=== PATIENT | male | born 1940 | race Two or more races ===

== ENCOUNTER 2022-02-03 23:31 | Inpatient (IN) ==
[2022-02-03] MEDS ORDERED: SODIUM CHLORIDE 1,000 ML IV STA (23:54)
--- NOTE | 2022-02-04 00:07 | ED.PDOC ---
General ED Provider: Dr. RHEA DONG Chief Complaint: Diabetes Stated Complaint: comes to the ER with increased thirst, weight loss and elevated blood glucose checked by family. Time Seen by Provider: 02/03/22 23:46 Mode of Arrival: Walk-In Information Source: Patient and Family Primary Care Provider: SHAUN ORTIZ Nursing and Triage Documentation Reviewed and Agree: Yes Does patient meet sepsis criteria?: No System Inflammatory Response Syndrome: Not Applicable Sepsis Protocol: For patient's 13 years and over: Temp is 96.8 and below OR 101 and greater Pulse >90 BPM Resp >20/minute Acutely Altered Mental Status Are patient's symptoms suggestive of a new infection, such as: -Pneumonia -Skin, Soft Tissue -Endocarditis -UTI -Bone, Joint Infection -Implantable Device -Acute Abdominal Infection -Wound Infection -Meningitis -Blood Stream Catheter Infection -Unknown Endocrine Complaint Exam Diabetic Complication Complaint/Exam Onset/Duration: few days Symptoms Are: Still present Timing: Constant Initial Severity: Moderate Current Severity: Moderate Aggravating: Reports None Associated Signs and Symptoms: Reports Polydipsia, Polyuria, Polyphagia and Weight loss; Denies Abdominal pain, Nausea, Vomiting, Fever, Diaphoresis or Fruity breath Related History: Denies Similar episode, DM 1, DM 2 or Insulin requiring Cardiac Risk Factors: Reports None CVA Risk Factors: Reports None Serious Bacterial Infection Risk Factors: Reports None Related Surgical History: Reports None Acetone on Breath: No Dry Mucous Membranes: No Kussmaul Respirations: No Glascow Coma Scale (see protocol): 15 Meningeal Signs: No Focal Weakness: None Focal Sensory Loss: None Gait: Normal Nystagmus Present: No Gag Reflex Present: No Finger to Nose: Normal Differential Diagnoses: Diabetic Ketoacidosis and Hyperglycemia Quality Indicator For Non-Traumatic Chest Pain/Syncope: EKG Performed Review of Systems Review Of Systems Constitutional: Reports No symptoms Eyes: Reports No symptoms Ears, Nose, Mouth, Throat: Reports No symptoms Respiratory: Reports No symptoms Cardiac: Reports No symptoms GI: Reports No symptoms : Reports No symptoms Musculoskeletal: Reports No symptoms Skin: Reports No symptoms Neurological: Reports Anxiety Endocrine: Reports Increased thirst, Increased urine and Unexplained weight loss All Other Systems: Reviewed and Negative ON LICENSE OF [facility] Medical History Abnormal prostate biopsy Family History DAUGHTER Diabetes Hypertension SON Diabetes Hypertension SISTER Diabetes Mother Myocardial infarct DAUGHTER No problems noted. FATHER Myocardial infarct Social History Smoking and tobacco status: Never smoker Surgical History Lens replaced Physical Exam Physical Exam Appearance: Reports Well-appearing, No pain distress and Well-nourished Ill-appearing: None Pain Distress: None Eyes: Reports EOMI and Conjunctiva clear ENT: Reports Ears normal, Nose normal and Dry mucosa Neck: Not Examined Respiratory: Reports Airway patent, Breath sounds clear, Breath sounds equal and Respirations nonlabored Cardiovascular: Reports Pulses normal, No rub, No murmur and Tachycardia GI/: Reports Soft, Nontender, No masses, Bowel sounds normal and No Organomegaly Musculoskeletal: Reports Normal strength, ROM intact, No edema and No calf tenderness Skin: Reports Warm, Dry and Normal color Neurological: Reports Sensation intact, Motor intact, Reflexes intact, Cranial nerves intact, Alert and Oriented Psychiatric: Reports Anxious Interpretation EKG Interpretation Time of EKG #1: 00:06 Rate: Normal Rhythm: Sinus Ectopy: None [place]: [place] ST Segment: Normal 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 age undetermined Critical Care Note Critical Care Note Total Critical Care Time (mins): 40 Course Course Hematology/Chemistry: 02/04/22 05:38 02/04/22 05:38 Orders, Labs, Meds: Lab Review 02/03/22 02/04/22 02/04/22 23:54 00:05 00:05 WBC 8.32 RBC 3.93 L Hgb 13.2 L Hct 37.4 L MCV 95.2 H MCH 33.6 H MCHC 35.3 RDW Coeff of Derrick 12.9 Plt Count 330 Immature Gran % (Auto) 0.4 Neut % (Auto) 69.2 Lymph % (Auto) 19.0 Mcdonald % (Auto) 9.1 Eos % (Auto) 1.3 Baso % (Auto) 1.0 Neut # (Auto) 5.8 Lymph # (Auto) 1.6 Mcdonald # (Auto) 0.8 Eos # (Auto) 0.1 Baso # (Auto) 0.1 Immature Gran # (Auto) 0.0 Puncture Site Rbrach Base Excess -4.4 L O2 Saturation 96.5 ABG pH 7.42 ABG pCO2 31.0 L ABG pO2 84.0 L ABG HCO3 20.1 L ABG Total CO2 21.1 Hemoglobin 1.3 Oxyhemoglobin 94.5 L Carboxyhemoglobin 2.4 H Total Hemoglobin 13.2 Sodium 132.2 L Potassium 4.90 Chloride 99.1 Carbon Dioxide 20.4 L Anion Gap 17.60 BUN 32.4 H Creatinine 1.23 H Estimated GFR (MDRD) 56.00 BUN/Creatinine Ratio 26.34 Glucose 688.1 H* Calcium 9.56 Total Bilirubin 1.00 AST 30.8 ALT 17.6 Alkaline Phosphatase 105.8 Total Creatine Kinase 42.9 L Troponin I < 0.012 Total Protein 7.11 Albumin 4.70 Globulin 2.41 Albumin/Globulin Ratio 1.95 Urine Color Urine Clarity Urine pH Ur Specific [place] Urine Protein Urine Glucose (UA) Urine Ketones Urine Blood Urine Nitrite Urine Bilirubin Urine Urobilinogen Ur Leukocyte Esterase Acetone, Qual Adenovirus (PCR) B. pertussis DNA (PCR) B.parapertussis DNA PCR C. pneumoniae DNA (PCR) Coronavirus OC43 (PCR) Coronavirus HKU1 (PCR) Coronavirus 229E (PCR) Coronavirus NL63 (PCR) Human Metapneumovir PCR Influenza Type A (PCR) Influenza B (RT-PCR) M. pneumoniae (PCR) Parainfluenza 1 (PCR) Parainfluenza 2 (PCR) Parainfluenza 3 (PCR) Parainfluenza 4 (PCR) RSV (PCR) Entero/Rhino (PCR) SARS-CoV-2 (PCR) 02/04/22 02/04/22 02/04/22 00:05 00:44 00:50 WBC RBC Hgb Hct MCV MCH MCHC RDW Coeff of Derrick Plt Count Immature Gran % (Auto) Neut % (Auto) Lymph % (Auto) Mcdonald % (Auto) Eos % (Auto) Baso % (Auto) Neut # (Auto) Lymph # (Auto) Mcdonald # (Auto) Eos # (Auto) Baso # (Auto) Immature Gran # (Auto) Puncture Site Base Excess O2 Saturation ABG pH ABG pCO2 ABG pO2 ABG HCO3 ABG Total CO2 Hemoglobin Oxyhemoglobin Carboxyhemoglobin Total Hemoglobin Sodium Potassium Chloride Carbon Dioxide Anion Gap BUN Creatinine Estimated GFR (MDRD) BUN/Creatinine Ratio Glucose Calcium Total Bilirubin AST ALT Alkaline Phosphatase Total Creatine Kinase Troponin I Total Protein Albumin Globulin Albumin/Globulin Ratio Urine Color Yellow Urine Clarity Clear Urine pH 5.0 Ur Specific Aurora <=1.005 Urine Protein Negative Urine Glucose (UA) 2+ H Urine Ketones 1+ H Urine Blood Negative Urine Nitrite Negative Urine Bilirubin Negative Urine Urobilinogen 0.2 Ur Leukocyte Esterase Negative Acetone, Qual Trace Adenovirus (PCR) Not detected B. pertussis DNA (PCR) Not detected B.parapertussis DNA PCR Not detected C. pneumoniae DNA (PCR) Not detected Coronavirus OC43 (PCR) Not detected Coronavirus HKU1 (PCR) Not detected Coronavirus 229E (PCR) Not detected Coronavirus NL63 (PCR) Not detected Human Metapneumovir PCR Not detected Influenza Type A (PCR) Not detected Influenza B (RT-PCR) Not detected M. pneumoniae (PCR) Not detected Parainfluenza 1 (PCR) Not detected Parainfluenza 2 (PCR) Not detected Parainfluenza 3 (PCR) Not detected Parainfluenza 4 (PCR) Not detected RSV (PCR) Not detected Entero/Rhino (PCR) Not detected SARS-CoV-2 (PCR) Not detected Orders Category Date Time Status PLACE PATIENT OBSERVATION .TO MEDSURG (MONITORED BED ADMISSION 02/04/22 00:48 Active ) ABG DRAW REQUEST Stat CARDIO 02/03/22 23:55 Completed EKG-(ED ONLY) Stat CARDIO 02/03/22 23:54 Completed ACTIVITY .Up ad Dasia CARE 02/04/22 00:49 Active BLOOD GLUCOSE MONITORING (MED/SURG) 0630,1100,1700,2100 CARE 02/04/22 00:50 Active GIVE HS SNACK 2100 CARE 02/04/22 00:49 Active INTAKE & OUTPUT Q8HR CARE 02/04/22 00:48 Active TELEMETRY MONITORING TELE CARE 02/04/22 00:48 Active VITAL SIGNS Q4HR CARE 02/04/22 00:49 Active ADA 1800 DAYSI. DIET DIETARY 02/04/22 Breakfast Ordered HS SNACK DIETARY 02/04/22 Dinner Ordered ABG COOX Stat LAB 02/03/22 23:54 Completed ACETONE, QUALITATIVE Stat LAB 02/03/22 23:54 Completed CBC W/ AUTO DIFF DAILY@0600 LAB 02/04/22 05:38 Completed CBC W/ AUTO DIFF DAILY@0600 LAB 02/05/22 06:00 Ordered CBC W/ AUTO DIFF Stat LAB 02/03/22 23:54 Completed COMPREHENSIVE METABOLIC PANEL Stat LAB 02/03/22 23:54 Completed CREATINE KINASE Stat LAB 02/03/22 23:54 Completed RESPIRATORY PANEL 2.1 (PCR) Stat LAB 02/03/22 23:55 Completed TROPONIN I Stat LAB 02/03/22 23:54 Completed URINALYSIS C & S IF INDICATED Stat LAB 02/04/22 00:50 Completed Acetaminophen [Tylenol] MEDS 02/04/22 00:48 Active 650 mg PO Q4H PRN Enoxaparin Sodium [Lovenox] MEDS 02/04/22 09:00 Active 40 mg SUBCUT DAILY Insulin Regular, Human [Humulin R] MEDS 02/04/22 00:48 Active See Protocol SUBCUT PRN PRN Ondansetron HCl/Pf [Zofran 4 mg/2 ml] MEDS 02/04/22 00:48 Active 4 mg IVP Q6H PRN Potassium Chloride in 0.9%NaCl [Sodium Chloride 0.9%- MEDS 02/04/22 01:00 Active KCl 20 Meq] 1,000 ml IV 150 mls/hr Sodium Chloride 0.9% [Sodium Chloride] 1,000 ml MEDS 02/03/22 23:54 Discontinued IV BOLUS RESUSCITATION STATUS Routine OTHERS 02/04/22 00:48 Ordered CHEST, 1V AP ONLY Stat RADS 02/03/22 23:54 Completed Medications Generic Name Dose Route Start Last Admin Trade Name Freq PRN Reason Stop Dose Admin Acetaminophen 650 mg 02/04/22 00:48 Acetaminophen 325 Mg Tablet PO Q4H PRN Fever and Mild Pain Ascorbic Acid 500 mg 02/04/22 09:00 Ascorbic Acid 500 Mg Tablet PO DAILY GUI Enoxaparin Sodium 40 mg 02/04/22 09:00 Enoxaparin Sodium 40 Mg/0.4 Ml Syr SUBCUT DAILY GUI Potassium Chloride/Sodium Chloride 1,000 mls @ 150 mls/hr 02/04/22 01:00 02/04/22 03:47 Sodium Chloride 0.9%-Kcl 20 Meq IV 150 mls/hr .Q6H40M GUI Administration Insulin Human Regular 0 unit 02/04/22 00:48 02/04/22 06:06 Insulin Regular, Human 100 Unit/Ml (3ml) Vial SUBCUT 15 unit PRN PRN Administration Hyperglycemia Protocol Non-Formulary Medication 1,000 mg 02/04/22 09:00 [place]-3 Fatty Acids PO DAILY GUI Non-Formulary Medication 50 mg 02/04/22 09:00 Zinc PO DAILY GUI Ondansetron HCl 4 mg 02/04/22 00:48 Ondansetron Hcl/Pf 4 Mg/2 Ml Sdv IVP Q6H PRN Nausea / Vomiting Discontinued Medications Generic Name Dose Route Start Last Admin Trade Name Freq PRN Reason Stop Dose Admin Sodium Chloride 1,000 mls @ 1,000 mls/hr 02/03/22 23:54 02/04/22 01:02 Sodium Chloride IV 02/04/22 00:53 1,000 mls/hr BOLUS STA Administration Vital Signs: Temp Pulse Resp BP Pulse Ox 02/03/22 23:32 98.4 F 104 H 22 155/96 H 95 Discharge Plan Discharge Patient Disposition: ADMITTED INPATIENT Discharge Problem: Acute hyperglycemia Diabetes mellitus Qualifiers: Diabetes mellitus type: type 2 Diabetes mellitus reading coach insulin use: without half-way use Diabetes mellitus complication detail: without coma ED Provider: RHEA DONG Condition: Fair Physician Progress Note: []
[2022-02-04 00:09] LABS: BASOPHILS # (AUTO) 0.1 K/uL (0-0.2); EOSINOPHILS # (AUTO) 0.1 K/ul (0.0-0.7); EOSINOPHILS % (AUTO) 1.3 % (0.0-7.0); HEMATOCRIT 37.4 % (42.0-52.0); HEMOGLOBIN 13.2 g/dl (14.0-18.0); IMMATURE GRANULOCYTE % (AUTO) 0.4 % (0.0-5.0); LYMPHOCYTES # (AUTO) 1.6 K/uL (0.60-3.4); MEAN CORPUSCULAR HEMOGLOBIN 33.6 pg (27.0-31.0); MEAN CORPUSCULAR HGB CONC 35.3 (31.8-35.4); MEAN CORPUSCULAR VOLUME 95.2 fl (80.0-94.0); MONOCYTES # (AUTO) 0.8 K/uL (0.4-2.0); MONOCYTES % (AUTO) 9.1 (0-10); NEUTROPHILS # (AUTO) 5.8 K/ul (2.0-6.9); NEUTROPHILS % (AUTO) 69.2 % (42.2-75.2); PLATELET COUNT 330 10^3/uL (140-440); RDW COEFFICIENT OF VARIATION 12.9 % (11.6-14.8); RED BLOOD COUNT 3.93 10^6/ul (4.70-6.10); WHITE BLOOD COUNT 8.32 K/ul (4.2-10.2)
[2022-02-04 00:21] LABS: ALANINE AMINOTRANSFERASE 17.6 U/L (0-50); ALKALINE PHOSPHATASE 105.8 U/L (56-119); ASPARTATE AMINO TRANSFERASE 30.8 U/L (17-59); BLOOD UREA NITROGEN 32.4 mg/dL (9-20); CALCIUM 9.56 mg/dL (8.4-10.2); CARBON DIOXIDE 20.4 mmol/L (22-30.0); CHLORIDE 99.1 mmol/L (98-107); CREATINE KINASE 42.9 U/L (55-170); CREATININE 1.23 mg/dL (0.60-1.10); SODIUM 132.2 mmol/L (134.5-145); TOTAL PROTEIN 7.11 g/dL (6.3-8.2)
[2022-02-04 00:31] LABS: GLUCOSE 688.1 mg/dL (74-106)
[2022-02-04 00:33] LABS: TROPONIN I < 0.012 ng/ml (0.0000-0.120)
[2022-02-04] MEDS ORDERED: ZOFRAN 4 MG/2 ML IVP PRN (00:48)
[2022-02-04] MEDS ORDERED: TYLENOL PO PRN (00:48)
[2022-02-04 00:50] LABS: BORDETELLA PARAPERTUSSIS (PCR) NOT DETECTED (NOT DETECT); BORDETELLA PERTUSSIS (PCR) NOT DETECTED (NOT DETECT); CHLAMYDIA PNEUMONIAE (PCR) NOT DETECTED (NOT DETECT); CORONAVIRUS 229E (PCR) NOT DETECTED (NOT DETECT); CORONAVIRUS HKU1 (PCR) NOT DETECTED (NOT DETECT); CORONAVIRUS NL63 (PCR) NOT DETECTED (NOT DETECT); CORONAVIRUS OC43 (PCR) NOT DETECTED (NOT DETECT); HUMAN METAPNEUMOVIRUS (PCR) NOT DETECTED (NOT DETECT); HUMAN RHINOVIRUS/ENTEROV (PCR) NOT DETECTED (NOT DETECT); INFLUENZA B (PCR) NOT DETECTED (NOT DETECT); MYCOPLASMA PNEUMONIAE (PCR) NOT DETECTED (NOT DETECT); PARAINFLUENZA VIRUS 1 (PCR) NOT DETECTED (NOT DETECT); PARAINFLUENZA VIRUS 2 (PCR) NOT DETECTED (NOT DETECT); PARAINFLUENZA VIRUS 3 (PCR) NOT DETECTED (NOT DETECT); PARAINFLUENZA VIRUS 4 (PCR) NOT DETECTED (NOT DETECT); RESPIRATORY SYNCYTIAL V (PCR) NOT DETECTED (NOT DETECT); SARS_COV_2 (PCR) NOT DETECTED (NOT DETECT)
[2022-02-04 00:59] LABS: BILIRUBIN,URINE Negative (NEGATIVE); CLARITY,URINE Clear (CLEAR); COLOR,URINE Yellow (YELLOW); KETONES,URINE 1+ (NEGATIVE); LEUKOCYTE ESTERASE ,URINE Negative (NEGATIVE); NITRITE,URINE Negative (NEGATIVE); PROTEIN,URINE Negative (NEGATIVE); URINE, BLOOD Negative (NEGATIVE); UROBILINOGEN,URINE 0.2 (0.2)
[2022-02-04 01:00] LABS: GLUCOSE, URINE (UA) 2+ (NEGATIVE)
--- NOTE | 2022-02-04 01:11 | DI ---
EXAM: Portable chest HISTORY: Cough COMPARISON: None. FINDINGS: The heart is normal in size. Atherosclerotic changes are seen involving the aorta arch. The lungs are clear bilaterally. There are no acute osseous abnormalities. IMPRESSION: No evidence of active pulmonary disease.
[2022-02-04 01:34] LABS: ADENOVIRUS (PCR) NOT DETECTED (NOT DETECT)
[2022-02-04 01:52] LABS: ABG PH 7.42 (7.35-7.45); BEecf -4.4 (-2.0-3.0); COHb 2.4 (0.5-1.5); HCO3 20.1 (21-28); MetHb 1.3 (0-1.5)
[2022-02-04 01:53] LABS: ABG O2 HGB 94.5 % (95-100); TCO2 21.1 (19-24); sO2 96.5 % (94-98); tHb 13.2 g/dl (11.7-17.4)
[2022-02-04] MEDS: SODIUM CHLORIDE 0.9%-KCL 20 MEQ 1,000 ML IV SCH ×4 (03:47→22:55)
[2022-02-04 03:50] VITALS: BMI 27.3
[2022-02-04 05:45] LABS: BASOPHILS # (AUTO) 0.1 K/uL (0-0.2); EOSINOPHILS # (AUTO) 0.1 K/ul (0.0-0.7); EOSINOPHILS % (AUTO) 1.6 % (0.0-7.0); HEMATOCRIT 32.6 % (42.0-52.0); HEMOGLOBIN 11.2 g/dl (14.0-18.0); IMMATURE GRANULOCYTE % (AUTO) 0.4 % (0.0-5.0); LYMPHOCYTES # (AUTO) 1.4 K/uL (0.60-3.4); LYMPHOCYTES % (AUTO) 19.1 (10.0-50.0); MEAN CORPUSCULAR HEMOGLOBIN 33.3 pg (27.0-31.0); MEAN CORPUSCULAR HGB CONC 34.4 (31.8-35.4); MONOCYTES # (AUTO) 0.6 K/uL (0.4-2.0); MONOCYTES % (AUTO) 8.8 (0-10); NEUTROPHILS % (AUTO) 69.1 % (42.2-75.2); PLATELET COUNT 252 10^3/uL (140-440); RDW COEFFICIENT OF VARIATION 13.1 % (11.6-14.8); RED BLOOD COUNT 3.36 10^6/ul (4.70-6.10); WHITE BLOOD COUNT 7.28 K/ul (4.2-10.2)
[2022-02-04] MEDS: HUMULIN R SUBCUT PRN ×5 (06:06→20:54)
[2022-02-04 06:16] LABS: ALBUMIN 3.61 g/dL (3.5-5.0); ALKALINE PHOSPHATASE 81.6 U/L (56-119); BILIRUBIN,TOTAL 0.76 mg/dL (0.2-1.3); BLOOD UREA NITROGEN 28.1 mg/dL (9-20); CALCIUM 8.53 mg/dL (8.4-10.2); CARBON DIOXIDE 22.4 mmol/L (22-30.0); CHLORIDE 102.8 mmol/L (98-107); CREATININE 1.11 mg/dL (0.60-1.10); POTASSIUM 4.82 mmol/L (3.5-5.1); SODIUM 133.8 mmol/L (134.5-145); TOTAL PROTEIN 5.87 g/dL (6.3-8.2)
[2022-02-04 06:23] LABS: GLUCOSE 560.3 mg/dL (74-106)
[2022-02-04] MEDS: GLUCOPHAGE PO SCH ×2 (08:58→16:30)
[2022-02-04] MEDS: ZINC-220 PO SCH (08:58)
[2022-02-04] MEDS: VITAMIN C PO SCH (08:58)
[2022-02-04] MEDS: LOVENOX SUBCUT SCH (08:58)
[2022-02-04] MEDS: OMEGA-3 FISH OIL PO SCH (08:58)
[2022-02-04] MEDS ORDERED: NON-FORMULARY MEDICATION (Zinc 50 mg Tablet) PO SCH (09:00)
[2022-02-04] MEDS ORDERED: NON-FORMULARY MEDICATION (Omega-3 Fatty Acids Capsule) PO SCH (09:00)
[2022-02-04 12:09] LABS: BLOOD UREA NITROGEN 24.8 mg/dL (9-20); CALCIUM 8.23 mg/dL (8.4-10.2); CARBON DIOXIDE 23.7 mmol/L (22-30.0); CHLORIDE 104.4 mmol/L (98-107); CREATININE 0.9 mg/dL (0.60-1.10); GLUCOSE 384.5 mg/dL (74-106); POTASSIUM 4.3 mmol/L (3.5-5.1); SODIUM 134.7 mmol/L (134.5-145)
[2022-02-05 05:29] LABS: BASOPHILS # (AUTO) 0.1 K/uL (0-0.2); BASOPHILS % (AUTO) 1.3 % (0.0-3.0); EOSINOPHILS # (AUTO) 0.2 K/ul (0.0-0.7); EOSINOPHILS % (AUTO) 3.7 % (0.0-7.0); HEMATOCRIT 29.6 % (42.0-52.0); HEMOGLOBIN 9.9 g/dl (14.0-18.0); IMMATURE GRANULOCYTE % (AUTO) 0.6 % (0.0-5.0); LYMPHOCYTES # (AUTO) 1.4 K/uL (0.60-3.4); MEAN CORPUSCULAR HEMOGLOBIN 33.2 pg (27.0-31.0); MEAN CORPUSCULAR HGB CONC 33.4 (31.8-35.4); MEAN CORPUSCULAR VOLUME 99.3 fl (80.0-94.0); MONOCYTES # (AUTO) 0.4 K/uL (0.4-2.0); MONOCYTES % (AUTO) 7.6 (0-10); NEUTROPHILS # (AUTO) 3.4 K/ul (2.0-6.9); NEUTROPHILS % (AUTO) 61.8 % (42.2-75.2); PLATELET COUNT 214 10^3/uL (140-440); RDW COEFFICIENT OF VARIATION 13.2 % (11.6-14.8); RED BLOOD COUNT 2.98 10^6/ul (4.70-6.10); WHITE BLOOD COUNT 5.41 K/ul (4.2-10.2)
[2022-02-05] MEDS: SODIUM CHLORIDE 0.9%-KCL 20 MEQ 1,000 ML IV SCH ×3 (05:33→19:13)
[2022-02-05 05:43] LABS: ALANINE AMINOTRANSFERASE 12.3 U/L (0-50); ALBUMIN 2.8 g/dL (3.5-5.0); ASPARTATE AMINO TRANSFERASE 20.4 U/L (17-59); BILIRUBIN,TOTAL 0.7 mg/dL (0.2-1.3); CALCIUM 7.41 mg/dL (8.4-10.2); CARBON DIOXIDE 22.7 mmol/L (22-30.0); CHLORIDE 109.6 mmol/L (98-107); CREATININE 0.94 mg/dL (0.60-1.10); GLUCOSE 254.9 mg/dL (74-106); POTASSIUM 3.95 mmol/L (3.5-5.1); SODIUM 135.9 mmol/L (134.5-145); TOTAL PROTEIN 4.96 g/dL (6.3-8.2)
[2022-02-05] MEDS: HUMULIN R SUBCUT PRN ×4 (06:03→20:57)
[2022-02-05] MEDS: GLUCOPHAGE PO SCH ×2 (09:11→17:19)
[2022-02-05] MEDS: VITAMIN C PO SCH (09:11)
[2022-02-05] MEDS: ZINC-220 PO SCH (09:11)
[2022-02-05] MEDS: LOVENOX SUBCUT SCH (09:11)
[2022-02-05] MEDS: OMEGA-3 FISH OIL PO SCH (09:11)
--- NOTE | 2022-02-05 10:05 | PCM.PROG ---
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
[2022-02-06] MEDS: SODIUM CHLORIDE 0.9%-KCL 20 MEQ 1,000 ML IV SCH ×3 (01:41→10:15)
[2022-02-06 05:48] LABS: BASOPHILS # (AUTO) 0.1 K/uL (0-0.2); BASOPHILS % (AUTO) 1.5 % (0.0-3.0); EOSINOPHILS # (AUTO) 0.2 K/ul (0.0-0.7); EOSINOPHILS % (AUTO) 4.7 % (0.0-7.0); HEMATOCRIT 30.4 % (42.0-52.0); HEMOGLOBIN 10.4 g/dl (14.0-18.0); IMMATURE GRANULOCYTE % (AUTO) 0.2 % (0.0-5.0); LYMPHOCYTES # (AUTO) 1.2 K/uL (0.60-3.4); LYMPHOCYTES % (AUTO) 26.3 (10.0-50.0); MEAN CORPUSCULAR HEMOGLOBIN 33.7 pg (27.0-31.0); MEAN CORPUSCULAR HGB CONC 34.2 (31.8-35.4); MEAN CORPUSCULAR VOLUME 98.4 fl (80.0-94.0); MONOCYTES # (AUTO) 0.4 K/uL (0.4-2.0); MONOCYTES % (AUTO) 8.4 (0-10); NEUTROPHILS # (AUTO) 2.8 K/ul (2.0-6.9); NEUTROPHILS % (AUTO) 58.9 % (42.2-75.2); PLATELET COUNT 211 10^3/uL (140-440); RDW COEFFICIENT OF VARIATION 13.1 % (11.6-14.8); RED BLOOD COUNT 3.09 10^6/ul (4.70-6.10); WHITE BLOOD COUNT 4.67 K/ul (4.2-10.2)
[2022-02-06 06:06] LABS: ALANINE AMINOTRANSFERASE 13.4 U/L (0-50); ALBUMIN 2.75 g/dL (3.5-5.0); ALKALINE PHOSPHATASE 65.5 U/L (56-119); ASPARTATE AMINO TRANSFERASE 25.7 U/L (17-59); BILIRUBIN,TOTAL 0.73 mg/dL (0.2-1.3); CALCIUM 7.72 mg/dL (8.4-10.2); CARBON DIOXIDE 22.2 mmol/L (22-30.0); CHLORIDE 108.6 mmol/L (98-107); CREATININE 0.82 mg/dL (0.60-1.10); POTASSIUM 4.48 mmol/L (3.5-5.1); SODIUM 135.4 mmol/L (134.5-145); TOTAL PROTEIN 4.83 g/dL (6.3-8.2)
[2022-02-06] MEDS: HUMULIN R SUBCUT PRN ×4 (06:17→20:43)
[2022-02-06] MEDS: OMEGA-3 FISH OIL PO SCH (09:24)
[2022-02-06] MEDS: VITAMIN C PO SCH (09:24)
[2022-02-06] MEDS: GLUCOPHAGE PO SCH ×2 (09:24→17:16)
[2022-02-06] MEDS: ZINC-220 PO SCH (09:24)
[2022-02-06] MEDS: LOVENOX SUBCUT SCH (09:24)
--- NOTE | 2022-02-06 10:21 | PCM.PROG ---
Date Seen by Provider: 02/06/22 Time Seen by Provider: 10:18 Subjective: pt w/o complaint Objective: Vitals: T=98.0 F, P=60, R=18, BP=98/55, SPO2=98 HEENT: []conjunctiva clear Neck: []supple Lungs: [] clear CVS: []RRR Abdomen: []nondistended Extremities: []mary Neurological: []alert and oriented Skin: []pink Lab/Tests/Diagnostic Imaging: [] glucose 211, K+ 4.4 Plan: decrease iv ns to 75cc/hr w/ 20meq K+ await echo of heart result consult Dr Gomez for follow up and outpatient diabetic treatment
[2022-02-06] MEDS ORDERED: LANTUS SUBCUT SCH (21:00)
[2022-02-07] MEDS: SODIUM CHLORIDE 0.9%-KCL 20 MEQ 1,000 ML IV SCH (00:50)
[2022-02-07 05:43] LABS: BASOPHILS # (AUTO) 0.1 K/uL (0-0.2); BASOPHILS % (AUTO) 1.4 % (0.0-3.0); EOSINOPHILS # (AUTO) 0.2 K/ul (0.0-0.7); HEMATOCRIT 31.8 % (42.0-52.0); HEMOGLOBIN 10.7 g/dl (14.0-18.0); IMMATURE GRANULOCYTE % (AUTO) 0.5 % (0.0-5.0); LYMPHOCYTES # (AUTO) 0.9 K/uL (0.60-3.4); LYMPHOCYTES % (AUTO) 20.4 (10.0-50.0); MEAN CORPUSCULAR HEMOGLOBIN 33.2 pg (27.0-31.0); MEAN CORPUSCULAR HGB CONC 33.6 (31.8-35.4); MEAN CORPUSCULAR VOLUME 98.8 fl (80.0-94.0); MONOCYTES # (AUTO) 0.4 K/uL (0.4-2.0); NEUTROPHILS # (AUTO) 2.7 K/ul (2.0-6.9); NEUTROPHILS % (AUTO) 64.7 % (42.2-75.2); PLATELET COUNT 215 10^3/uL (140-440); RDW COEFFICIENT OF VARIATION 12.7 % (11.6-14.8); RED BLOOD COUNT 3.22 10^6/ul (4.70-6.10); WHITE BLOOD COUNT 4.22 K/ul (4.2-10.2)
[2022-02-07 05:58] LABS: CHOLESTEROL 76.8 mg/dL (0-200); HDL CHOLESTEROL 33.9 mg/dL (35-60); TRIGLYCERIDES 79.9 mg/dL (0-150)
[2022-02-07 05:59] LABS: ALANINE AMINOTRANSFERASE 12.8 U/L (0-50); ALBUMIN 3.04 g/dL (3.5-5.0); ALKALINE PHOSPHATASE 67.7 U/L (56-119); ASPARTATE AMINO TRANSFERASE 26.9 U/L (17-59); BILIRUBIN,TOTAL 0.61 mg/dL (0.2-1.3); CALCIUM 8.31 mg/dL (8.4-10.2); CARBON DIOXIDE 24.4 mmol/L (22-30.0); CHLORIDE 106.7 mmol/L (98-107); CREATININE 0.83 mg/dL (0.60-1.10); GLUCOSE 250.3 mg/dL (74-106); POTASSIUM 4.29 mmol/L (3.5-5.1); SODIUM 134.6 mmol/L (134.5-145); TOTAL PROTEIN 5.25 g/dL (6.3-8.2)
[2022-02-07 06:01] VITALS: BP 106/60; TEMP 98
[2022-02-07] MEDS: HUMULIN R SUBCUT PRN ×2 (06:51→11:13)
--- NOTE | 2022-02-07 08:47 | ECHO2D ---
Date of Exam: 02/06/2022 Ordering Physician: HOSPITALIST--IKER/ DR. SHAUN ORTIZ--CONSULT Room #: 111 Reason for Echo: SOB, DM2 M-Mode Normal Adult Results LV Dimensions Normal Adult Results AoV Opening excursions >1.6 >1.6 LVEDD-base- 3.5-5.8 4.8 Ao root dimensions 2.0-3.7 3.7 LVESD-base- 3.1-4.6 L. Atrium dimensions 1.9-3.8 4.4 Post. Wall thickness 0.8-1.1 1.3 IV septum (thickness) 0.7-1.2 1.4 Post. Wall excursion 0.72-1.3 NORMAL Septal motion NORMAL Systolic motion R. Ventricular cavity 1.5-2.0 NORMAL LVEF 60% 66% Paradoxical septal wall motion NORMAL 2-D : CALCIFIC MITRAL VALVE ANNULUS--NORMAL LEFT VENTRICLE CONTRACTILITY--NORMAL VALVES--NO EFFUSION, NO THROMBUS, ENLARGED LEFT ATRIAL CAVITY M-MODE: MV: CALCIFIC MITRAL VALVE ANNULUS AV: NORMAL TV: NORMAL PV: CHAMBER SIZE: ENLARGED LEFT ATRIAL CAVITY WALL MOTION: NORMAL PERICARDIUM: NORMAL INTERPRETATION: 1. 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 CALCIFIC MITRAL VALVE ANNULUS 3. NORMAL LEFT VENTRICLE CONTRACTILITY AND LEFT VENTRICLE SIZE MTDD
[2022-02-07] MEDS: ZINC-220 PO SCH (09:00)
[2022-02-07] MEDS: VITAMIN C PO SCH (09:00)
[2022-02-07] MEDS: LOVENOX SUBCUT SCH (09:00)
[2022-02-07] MEDS: GLUCOPHAGE PO SCH (09:00)
[2022-02-07] MEDS: OMEGA-3 FISH OIL PO SCH (09:00)
--- NOTE | 2022-02-07 10:23 | PCM.PROG ---
Date Seen by Provider: 02/07/22 Time Seen by Provider: 10:19 Subjective: pt improved, wants to be discharged, pt instructed by nursing on delivering insulin and using a glucometer, will follow up with Dr Gomez Objective: Vitals: T=98.0 F, P=64, R=16, JP=148/60, SPO2=97 HEENT: []conjunctiva clear Neck: []supple Lungs: [] no respiratory distress CVS: []RRR Abdomen: []nondistended Extremities: []mary Neurological: []alert and oriented Skin: []pink Lab/Tests/Diagnostic Imaging: [] echo per Dr Gomez, LVH, normal LV contraction and LVEF 66% (1) Diabetes mellitus: Status: Acute Code(s): E11.9 - Type 2 diabetes mellitus without complications SNOMED Code(s): 59730789 Plan: see Dr Gomez, metformin 500 bid and lantus 15U pm, glucometer, strips and syringes
--- NOTE | 2022-02-07 10:26 | PCM.DC ---
Final Diagnosis: diabetes Physical Exam Appearance: Well-appearing Ill-appearing: None Pain Distress: None Eyes: Conjunctiva clear ENT: Oropharynx normal Neck: Supple Respiratory: Airway patent Cardiovascular: RRR GI/: Other (nondistended) Musculoskeletal: ROM intact Skin: Normal color Neurological: Alert and Oriented Psychiatric: Affect appropriate (1) Diabetes mellitus: Status: Acute Code(s): E11.9 - Type 2 diabetes mellitus without complications SNOMED Code(s): 52401548 Qualifiers: Diabetes mellitus complication detail: without coma Diabetes mellitus long-term insulin use: without long-term use Diabetes mellitus type: type 2 Reason for Hospitalization: hyperglycemia Prognosis/Condition at Discharge: good Medications at Discharge: Ambulatory Orders Medication Instructions Recorded ascorbic acid (vitamin C) 500 mg 500 mg PO DAILY 02/03/22 tablet (Vitamin C) omega-3 fatty acids 1,000 mg PO DAILY 02/03/22 zinc 50 mg tablet 50 mg PO DAILY 02/03/22 Lab/Diagnostics: am blood sugar 250 Education Provided to Patient and Family: diabetic insulin monitoring and delivery Follow-ups: Dr Gomez Discharge Disposition: Home Hospital Course: glucose trended by to 200's with metformin and insulin Plan: home and follow up with Dr Gomez return if worse
== END 2022-02-07 13:25 | disposition home or self-care (01) | DRG 639 ==
LOC: MEDSURG A 23:31 → ED 23:31 → MEDSURG A 02-04 02:47
PROVIDERS: ADMIT Internal Medicine Geriatric Medicine; ATTEND Emergency Medicine Emergency Medical Services
DX: R00.0 Tachycardia, unspecified; Z51.81 Encounter for therapeutic drug level monitoring; I51.7 Cardiomegaly; R63.4 Abnormal weight loss; Z79.01 Long term (current) use of anticoagulants; Z79.84 Long term (current) use of oral hypoglycemic drugs; Z79.899 Other long term (current) drug therapy; Z20.822 Contact with and (suspected) exposure to COVID-19; E11.65 Type 2 diabetes mellitus with hyperglycemia; E86.0 Dehydration